=== PATIENT | male | born 1990 ===

== ENCOUNTER 2018-03-03 09:19 | Emergency (ER) | payer SELFPAY ==
--- NOTE | 2018-03-03 09:29 | EDPHY ---
H & P Stated Complaint: ETOH withdrawl, Last drink this morning Time Seen by Provider: 03/03/18 09:28 HPI/ROS: HPI: This is a 27-year-old male who presents with Chief Complaint: Alcohol withdrawal, last drink this morning Location: Body Quality: Alcohol withdrawal Duration: 1-3 hours prior to arrival Signs and Symptoms: no fever,+ nausea, no vomiting, no hematemesis, no blood in stool, no abdominal bloating, no diarrhea, no back pain, no urinary symptoms, no testicular/groin pain, no indigestion, no chest pain, no shortness of breath Timing: Acute Severity: Moderate Context: Patient reports that he drinks approximately a 0.5 gal 2 1 gal of alcohol daily. He decided approximately 8 hr ago to stop drinking alcohol as he believes he wants to quit this time. He started to become nauseous, have hand tremors and feel anxious. So he took another drink of vodka thinking that would make him feel better. Patient is originally from [place] but now has never [facility]. Patient is open to going at this time. Patient is unemployed and does not have health insurance. He denies any suicidal ideation, homicidal ideation, hallucinations. Modifying Factors: None Comment: ROS: see HPI Constitutional: No fever, no chills, no weight loss Eyes: No blurred vision Respiratory: No shortness of breath, no cough Cardiovascular: No chest pain, no palpitations Gastrointestinal: No nausea, no vomiting, no diarrhea, no hematemesis, no blood in stool Genitourinary: No dysuria, no blood in urine Extremities: No myalgias, no edema Neurologic: No weakness, no numbness Skin: No rashes, no petechiae Hematologic: No bruising, no bleeding MEDICAL/SURGICAL/SOCIAL HISTORY: Medical history: Hypertension, acute renal failure Surgical history: Denies Social history: No health insurance. Tobacco user. Family history noncontributory. CONSTITUTIONAL: Untidy, adult white male, awake and alert, no obvious distress HEENT: Atraumatic and normocephalic, PERRL, EOMI. Nares patent; no rhinorrhea; no nasal mucosal edema. Tympanic membranes clear. Oropharynx clear, no exudate and moist pink mucosa. Airway patent. No lymphadenopathy. No meningismus. Cardiovascular: Normal S1/S2, regular rate, regular rhythm, without murmur rub or gallop. PULMONARY/CHEST: Symmetrical and nontender. Clear to auscultation bilaterally. Good air movement. No accessory muscle usage. ABDOMEN: Soft, nondistended, nontender, no rebound, no guarding, no peritoneal signs, no masses or organomegaly. No CVAT. EXTREMITIES: 2/2 pulses, strength 5/5, no deformities, no clubbing, no cyanosis or edema. NEUROLOGICAL: no focal neuro deficits. GCS 15. SKIN: Warm and dry, no erythema. no rash. Good capillary refill. PSYCH: Fair eye contact, no flight of ideas, organized thought process, fair insight and judgment, no auditory and visual command hallucinations, no suicidal ideation with a plan, no homicidal ideation, not paranoid Source: Patient Exam Limitations: No limitations - Personal History Current Tetanus Diphtheria and Acellular Pertussis (TDAP): Unsure - Medical/Surgical History Hx Asthma: No Hx Chronic Respiratory Disease: No Hx Diabetes: No Hx Cardiac Disease: No Hx Renal Disease: Yes Hx Cirrhosis: No Hx Alcoholism: Yes Hx HIV/AIDS: No Hx Splenectomy or Spleen Trauma: No Other PMH: HTN, ARF - Social History Smoking Status: Current every day smoker Constitutional: Initial Vital Signs Temperature (C) 36.4 C 03/03/18 09:26 Heart Rate 83 03/03/18 09:26 Respiratory Rate 16 03/03/18 09:26 Blood Pressure 132/82 H 03/03/18 09:26 O2 Sat (%) 96 03/03/18 09:26 O2 Delivery Mode Room Air Allergies/Adverse Reactions: No Known Allergies Allergy (Unverified 03/03/18 09:26) Home Medications: Medication Instructions Recorded NK [No Known Home Meds] 03/03/18 Medical Decision Making ED Course/Re-evaluation: CIWA upon arrival=10 0945: Given PO 50 mg of Librium, 2 mg of Ativan and 4 mg of Zofran Does not meet M1 hold or Detainer criteria. Patient is agreeable to go to the [facility]. Will hold for 1-2 hours and re-evaluate to make sure the CIWA score has decreased. Nurse has already called the arc and ensured a spot is open for him and has given report. 1120: CIWA=6. Drinking fluids without any difficulty. Ambulatory without ataxia. Taxi called to transport patient to [facility]. This patient was seen under the supervision of my secondary supervising physician. I evaluated care for this patient independently. Differential Diagnosis: Differential diagnosis includes but is not limited to electrolyte disturbances, alcohol intoxication, alcohol withdrawal, major depression. - Data Points Medications Given: Discontinued Medications Chlordiazepoxide (Librium 25 Mg Prepack#6) 1 btl TAKEHOME EDNOW ONE Stop: 03/03/18 09:43 Last Admin: 03/03/18 10:12 Dose: 1 btl Chlordiazepoxide HCl (Librium) 50 mg PO EDNOW ONE Stop: 03/03/18 09:31 Last Admin: 03/03/18 09:45 Dose: 50 mg Lorazepam (Ativan) 2 mg PO EDNOW ONE Stop: 03/03/18 09:31 Last Admin: 03/03/18 09:45 Dose: 2 mg Ondansetron HCl (Zofran Odt) 4 mg PO EDNOW ONE Stop: 03/03/18 09:31 Last Admin: 03/03/18 09:45 Dose: 4 mg Departure - Departure Disposition: Home, Routine, Self-Care Clinical Impression: Uncomplicated alcohol withdrawal without perceptual disturbances Alcohol dependence Qualifiers: Substance use status: uncomplicated Qualified Code(s): F10.20 - Alcohol dependence, uncomplicated Condition: Good Instructions: Chlordiazepoxide (By mouth), Alcohol Withdrawal (ED), Alcohol Dependence (ED) Additional Instructions: Please slowly refrain from drinking alcohol. Please establish care with a primary care provider at the [facility]. After discharge to the emergency room you will be directed to the [facility] for further detox. They will provide you with Librium which will help with your alcohol withdrawal symptoms. Call 911 if you have thoughts of hurting or killing yourself or anyone else, or have any new or worsening symptoms that concern you. Referrals: [facility] Detox 24 Hours [Outside] - As per Instructions [facility],. [Clinic] - As per Instructions
[2018-03-03] MEDS ORDERED: ONDANSETRON DISINTEGRATING 4 MG TAB PO ONE (09:30)
[2018-03-03] MEDS ORDERED: chlordiazePOXIDE 25 MG CAP PO ONE (09:30)
[2018-03-03] MEDS ORDERED: LORazepam 1 MG TAB PO ONE (09:30)
[2018-03-03] MEDS ORDERED: CHLORDIAZEPOXIDE 25MG PREPK#6 BTL TAKEHOME ONE (09:42)
[2018-03-03 11:01] VITALS: BP 128/86
== END 2018-03-03 11:16 | disposition home or self-care (01) ==
DX: F10.239 Alcohol dependence with withdrawal, unspecified (principal); I10 Essential (primary) hypertension; F17.200 Nicotine dependence, unspecified, uncomplicated